=== PATIENT | male | born 1990 | race Caucasian/White ===

== ENCOUNTER 2024-03-23 01:46 | Emergency (ER) | payer OTHER ==
[~2024-03-23] VITALS: Ht 180.3 cm; Wt 76.1 kg
[2024-03-23] MEDS ORDERED: ketorolac trometh 15mg/ml vial 15 MG/ML ML IM ONE (02:05)
[2024-03-23] MEDS ORDERED: CLIN300C71 PO (02:07)
[2024-03-23] MEDS: clindamycin 150mg capsule PO ONE (02:21)
[2024-03-23] MEDS: ketorolac trometh 30MG/ML vial 30 MG/ML VIAL IM ONE (02:22)
[2024-03-23 02:27] VITALS: BP 128/75; PULSE 88; RESP 16; O2SAT 99
[2024-03-23 02:43] VITALS: TEMP 98.4
== END 2024-03-23 02:45 | disposition home or self-care (01) ==
LOC: ER 01:47
DX: K04.7 Periapical abscess without sinus (principal); Z88.6 Allergy status to analgesic agent
CPT/HCPCS: 96372; 99283; J1885